=== PATIENT | male | born 1965 | race Caucasian/White ===

== ENCOUNTER 2017-10-08 13:13 | Emergency (ER) | payer SELFPAY | END 2017-10-08 14:15 | disposition home or self-care (01) | LOC: ER 14:15 | DX: S23.3XXA Sprain of ligaments of thoracic spine, initial encounter (principal); Z88.6 Allergy status to analgesic agent; X50.1XXA Overexertion from prolonged static or awkward postures, initial encounter; Y93.89 Activity, other specified; Y92.89 Other specified places as the place of occurrence of the external cause; Y99.8 Other external cause status | CPT/HCPCS: 99283 ==